=== PATIENT | male | born 1980 | race Hispanic/Latino ===

== ENCOUNTER → 2017-03-13 | Emergency (ER) | payer SELFPAY ==
[~2017-03-13] MED LIST: Adacel (T-DAP) 0.5 ML VIAL ONE
== END ==
LOC: NAV ERS 10:10
DX: S61.216A Laceration without foreign body of right little finger without damage to nail, initial encounter (principal); I10 Essential (primary) hypertension; Z23 Encounter for immunization; W45.8XXA Other foreign body or object entering through skin, initial encounter; Y99.0 Civilian activity done for income or pay
CPT/HCPCS: 90471; 90715

== ENCOUNTER 2019-08-15 09:20 | Emergency (ER) | payer OTHER, SELFPAY ==
[2019-08-15] MEDS ORDERED: Ibuprofen 800 MG TAB ONE (09:39)
== END 2019-08-15 09:48 | disposition home or self-care (01) ==
LOC: NAV ERS 09:20
DX: S09.93XA Unspecified injury of face, initial encounter (principal); K02.9 Dental caries, unspecified; W18.09XA Striking against other object with subsequent fall, initial encounter
CPT/HCPCS: 99283

== ENCOUNTER 2020-01-02 13:04 | Emergency (ER) | payer OTHER, SELFPAY ==
[2020-01-03 19:27] LABS: SARS-CoV-2 MS2 Positive; SARS-CoV-2 N Gene Negative; SARS-CoV-2 S Gene Negative; SARS-CoV-2 by NAA Not Detected (NotDetected); SARS-CoV-2 orf1ab Negative
== END 2020-01-02 14:20 | disposition home or self-care (01) ==
LOC: NAV ERS 13:04
DX: J02.9 Acute pharyngitis, unspecified (principal); R09.82 Postnasal drip; Z20.828 Contact with and (suspected) exposure to other viral communicable diseases
CPT/HCPCS: 87081; 87430; 87635; 99283; U0003

== ENCOUNTER 2020-05-07 14:18 | Emergency (ER) | payer OTHER, SELFPAY ==
[2020-05-07] MEDS ORDERED: Bacitracin 1 PK ONE (14:57)
== END 2020-05-07 15:04 | disposition home or self-care (01) ==
LOC: NAV ERS 14:18
DX: Z48.817 Encounter for surgical aftercare following surgery on the skin and subcutaneous tissue (principal)
CPT/HCPCS: 99282